=== PATIENT | female | born 1980 | race American Indian/Alaskan Native ===

== ENCOUNTER 2018-09-14 20:36 | Emergency (ER) | payer OTHER ==
[2018-09-14 20:46] VITALS: BMI 27.4
[2018-09-14] MEDS ORDERED: DiphenhydrAMINE 50 mg/ml Inj IVP STA (21:27)
--- NOTE | 2018-09-14 21:36 | ED PDOC ---
Arrival/HPI <Tarun Rodriguez - Last Filed: 09/14/18 22:42> - General Historian: Patient - History of Present Illness Narrative History of Present Illness (Text): 09/14/18 21:28 38 y o female no remarkable past medical history presents today complaining of L sided frontal headache x 2 days. States she usually gets headaches at home and takes Advil Migraine for symptoms and that they usually go away after that. States she took 2 tabs of Advil Migraine at 1 am yesterday without relief of symptoms. Describes pain as sharp, comes and goes, and made worse when she is in a lighted room. Rates pain as 8/10 at its worst. Currently having episode of headache during encounter. Admits to photophobia and pain with ocular movement of L eye. Denies lightheadedness/dizziness, fever, chills, recent sick contacts, neck pain, chest pain, shortness of breath, n/v/d/c, abd pain, urinary complaints, or other symptoms. Able to ambulate without any concerns. Past medical history: denies PSurgHx: denies Allergies: NKDA Meds: none Fam hx: Hypertension and DM2 Social hx: denies smoking or illicit drug use; admits to social alcohol use PMD: none Time/Duration: Other (2 days) Symptom Onset: Sudden Symptom Course: Intermittent Quality: Throbbing Severity Level: 8 <Mikey Newman - Last Filed: 09/14/18 23:51> - General Chief Complaint: Headache Time Seen by Provider: 09/14/18 20:57 Past Medical History - Infectious Disease Hx of Infectious Diseases: None - Psychiatric Hx Substance Use: No - Anesthesia Hx Anesthesia: No <Mikey Newman - Last Filed: 09/14/18 23:51> Family/Social History Family/Social History: No Known Family HX Smoking Status: Never Smoked Hx Alcohol Use: Yes Frequency of alcohol use: Socially Hx Substance Use: No <Mikey Newman - Last Filed: 09/14/18 23:51> Allergies/Home Meds <Tarun Rodriguez - Last Filed: 09/14/18 22:42> <Mikey Newman - Last Filed: 09/14/18 23:51> Allergies/Adverse Reactions: Allergies No Known Allergies Allergy (Verified 09/14/18 20:41) Review of Systems - Review of Systems Constitutional: absent: Fatigue, Weight Change, Fevers, Night Sweats Eyes: Photophobia, Eye Pain. absent: Vision Changes ENT: absent: Hearing Changes, Tinnitus, TMJ Pain, Sore Throat, Rhinorrhea, Epistaxis, Sinus Congestion Respiratory: absent: SOB, Cough, Sputum, Wheezing Cardiovascular: absent: Chest Pain, RO Gastrointestinal: absent: Abdominal Pain, Stool Changes, Constipation, Diarrhea, Nausea, Vomiting Musculoskeletal: absent: Arthralgias, Neck Pain, Myalgias Skin: absent: Rash, Pruritis Neurological: Headache. absent: Dizziness, Focal Weakness, Gait Changes <Mikey Newman - Last Filed: 09/14/18 23:51> Physical Exam Appearance: Positive for: Well-Appearing, Non-Toxic Pain Distress: Moderate Mental Status: Positive for: Alert and Oriented X 3 - Systems Exam Head: Present: Atraumatic, Normocephalic. No: Ecchymosis Pupils: Present: PERRL Extroacular Muscles: Present: EOMI Conjunctiva: Present: Normal Ears: Present: NORMAL TM. No: Erythema Mouth: Present: Moist Mucous Membranes Pharnyx: Present: Normal. No: ERYTHEMA, EXUDATE, Peritonsilar Swelling Neck: Present: Normal Range of Motion. No: Meningeal Signs, MIDLINE TENDERNESS, JVD, Lymphadenopathy Respiratory/Chest: Present: Clear to Auscultation, Good Air Exchange. No: Respiratory Distress, Accessory Muscle Use, Wheezes, Rales, Rhonchi Cardiovascular: Present: Regular Rate and Rhythm, Normal S1, S2, Peripheal Pulses Present. No: Murmurs, Rub, Gallop Abdomen: Present: Normal Bowel Sounds. No: Tenderness, Distention, Mass/Organomegaly Upper Extremity: Present: Normal Inspection, Normal ROM, NORMAL PULSES, Neurovascularly Intact, Capillary Refill < 2s. No: Cyanosis, Edema Lower Extremity: Present: Normal Inspection, NORMAL PULSES, Neurovascularly Intact, Capillary Refill < 2 s. No: Edema Neurological: Present: GCS=15, CN II-XII Intact, Speech Normal, Motor Func Grossly Intact, Normal Sensory Function, Normal Cerebellar Funct, Norm Deep Tendon Reflexes, Gait Normal, Memory Normal, Normal 2Pt Descrimination Skin: Present: Warm, Dry, Normal Color. No: Rashes Psychiatric: Present: Alert, Oriented x 3, Normal Insight, Normal Concentration <Mikey Newman - Last Filed: 09/14/18 23:51> Medical Decision Making ED Course and Treatment: Impression: Pt seen and evaluated with biomedical equipment support specialist. Aware and agree with HPI, clinical findings, plan, and management. Pt, with no past medical history, presented for left frontal headache for 2 days. Plan: -- Benadryl -- Reglan -- Reassess and disposition - Medication Orders Current Medication Orders: Discontinued Medications Diphenhydramine HCl (Benadryl) 25 mg IVP STAT STA Stop: 09/14/18 21:28 Last Admin: 09/14/18 21:54 Dose: 25 mg IVP Administration Document 09/14/18 21:54 CNR (Rec: 09/14/18 21:54 CNR [id number]) Charges for Administration # of IVP Administrations 1 Metoclopramide HCl (Reglan) 10 mg IVP STAT STA Stop: 09/14/18 21:27 Last Admin: 09/14/18 21:54 Dose: 10 mg IVP Administration Document 09/14/18 21:54 CNR (Rec: 09/14/18 21:54 CNR [id number]) Charges for Administration # of IVP Administrations 1 <Tarun Rodriguez - Last Filed: 09/14/18 22:42> ED Course and Treatment: 09/14/18 21:41 Pt presents with episode of migraine. Ordered Reglan x1, Benadryl x1. Continue to monitor. 09/14/18 22:49 Reassessed pt, states her headache has improved s/p Reglan and Benadryl. Pt given script of Fioricet to take prn for symptoms at home. Can follow with PCP within 1 week of ER discharge. Will discharge to home at this time. - Medication Orders Current Medication Orders: Diphenhydramine HCl (Benadryl) 25 mg IVP STAT STA Stop: 09/14/18 21:28 Metoclopramide HCl (Reglan) 10 mg IVP STAT STA Stop: 09/14/18 21:27 <Mikey Newman - Last Filed: 09/14/18 23:51> - PA / SWING RIDE OPERATOR / Resident Statement AMBROSIO has reviewed & agrees with the documentation as recorded. AMBROSIO has examined the patient and agrees with the treatment plan. <Tarun Rodriguez - Last Filed: 09/14/18 22:42> Disposition/Present on Arrival - Present on Arrival Any Indicators Present on Arrival: No <Tarun Rodriguez - Last Filed: 09/14/18 22:42> - Present on Arrival Any Indicators Present on Arrival: No History of DVT/PE: No History of Uncontrolled Diabetes: No Urinary Catheter: No History of Decub. Ulcer: No History Surgical Site Infection Following: None - Disposition Have Diagnosis and Disposition been Completed?: Yes Disposition Time: 22:45 <PatyBasil lyncha - Last Filed: 09/14/18 23:51> - Disposition Diagnosis: Migraine Disposition: HOME/ ROUTINE Patient Problems: Current Active Problems Problem Status Onset Migraine Acute Condition: IMPROVED Discharge Instructions (ExitCare): Migraine Headache (DC), Migraine Headaches in Adults Print Language: CITIZEN OF [place] Additional Instructions: Please follow-up with your primary care doctor within 1 week of discharge. Please take Fioricet as needed for headache. Should symptoms recur or worsen, please call your primary care physician or report to your nearest emergency department. Prescriptions: Acetaminophen/Butalbital/Caf [Fioricet] 1 tab PO Q6 PRN #16 tab PRN Reason: Headache Forms: [facility] (Armenian)
[2018-09-14 22:57] VITALS: TEMP 97.8
[2018-09-14 22:58] VITALS: BP 135/82; PULSE 65; RESP 20; O2SAT 98
== END 2018-09-14 22:57 | disposition home or self-care (01) ==
LOC: ED 20:36
DX: G43.909 Migraine, unspecified, not intractable, without status migrainosus (principal)
CPT/HCPCS: 96374; 96375; 99285; J1200; J2765